=== PATIENT | female | born 1955 | race African-American/Black ===

== ENCOUNTER 2021-04-04 06:34 | Day surgery (SDC) | payer OTHER ==
[2021-03-29 10:56] LABS: Urine Appearance CLEAR (Clear); Urine Bilirubin NEGATIVE (Negative); Urine Blood NEGATIVE (Negative); Urine Color YELLOW (Yellow); Urine Glucose NEGATIVE (Negative); Urine Protein NEGATIVE (Negative); Urine Specific Gravity <=1.005 (1.005-1.030)
[2021-03-29 10:57] LABS: Urine Microscopic Reflex NO UMIC
[2021-03-29 11:06] LABS: Potassium 3.7 mmol/L (3.5-5.1)
[2021-03-29 12:06] LABS: Absolute Lymphocytes (CBC) 1.4 K/uL (0.7-4.9); Basophils % 0.4 % (0-1.3); Lymphocytes % 24.3 % (15.3-44.8); MPV 9.5 fL (7.6-11.3); RBC Red Blood Cell Count 4.35 M/uL (3.86-4.86)
[2021-03-29 12:18] LABS: Protime INR 0.99
[2021-04-04] MEDS ORDERED: KETAMINE HCL 500 MG/5 ML VIAL ONE (07:20)
[2021-04-04] MEDS ORDERED: MIDAZOLAM HCL 2 MG/2 ML INJ ONE (07:20)
[2021-04-04] MEDS ORDERED: propofoL 200 MG/20 ML VIAL IV ONE (07:20)
[2021-04-04] MEDS ORDERED: dexAMETHasone 10 MG/ML VIAL ONE (07:20)
[2021-04-04] MEDS ORDERED: SCOPOLAMINE HYDROBROMIDE PATCH TD ONE (07:21)
[2021-04-04] MEDS ORDERED: NS 0.9% VIAL 10 ML ONE (07:21)
[2021-04-04] MEDS ORDERED: ONDANSETRON 4 MG/2 ML VIAL ONE (07:21)
[2021-04-04] MEDS ORDERED: LIDOCAINE 1% MPF 5 ML VIAL ONE (07:21)
[2021-04-04] MEDS ORDERED: CEFAZOLIN/SWI 2gm 2 GM/20 ML SYR ONE (07:21)
[2021-04-04] MEDS ORDERED: FENTANYL CITR 250 MCG/5 ML ONE (07:21)
[2021-04-04] MEDS ORDERED: ROCURONIUM 50 MG/5 ML VIAL IV ONE (07:21)
[2021-04-04] MEDS ORDERED: LIDOCAINE 1% W/EPI 1:100,000 MDV 20 ML VIAL ONE (07:29)
[2021-04-04] MEDS ORDERED: NA CHLORIDE 0.9% 100 ML IV ONE (07:29)
[2021-04-04] MEDS ORDERED: NA CHLORIDE 0.9% 1,000 ML ONE ×2 (07:30→11:11)
[2021-04-04] MEDS ORDERED: VASOPRESSIN 20 UNIT/ML VIAL ONE (07:30)
[2021-04-04] MEDS ORDERED: CEFAZOLIN/SWI 1gm 0 GM/0 ML SYR ONE (07:30)
[2021-04-04] MEDS ORDERED: FENTANYL CITR 100 MCG/2 ML ONE (11:20)
[2021-04-04] MEDS ORDERED: BUPIVACAINE 0.5% PF 10 ML VIAL ONE (12:26)
[2021-04-04] MEDS ORDERED: KETOROLAC 30 MG/ML INJ ONE (12:27)
[2021-04-04] MEDS ORDERED: hydrOXYzine HCL 25 MG TAB PO PRN (12:53)
[2021-04-04] MEDS: MORPHINE 4 MG/ML SYR ONE ×2 (12:53→13:07)
[2021-04-04] MEDS ORDERED: MEPERIDINE HCL 25 MG/ML SYR IM PRN (12:56)
[2021-04-04] MEDS ORDERED: PROMETHAZINE INJ 25 MG/ML AMP IV PRN (12:56)
--- NOTE | 2021-04-04 13:02 | P.BOP ---
Preoperative diagnosis: stage 3 anterior wall prolapse, post defect, uterine prolapse, occult BRENNA Postoperative diagnosis: same Primary procedure: Anterior repair with biologic graft and bilat SSLF colpopexy Secondary procedure: post repair and perineorrhaphy, cysto Multiple Sclerosis Nurse: Huber Boland Estimated blood loss: 150 Specimen: none Findings: -2/+5+5/6/mod/8/-2/-2/-3 Anesthesia: General Complications: None Drain(s): Urinary catheter Implants: dermapure Transferred to: Recovery Room Condition: Good
[2021-04-04 13:39] VITALS: TEMP 97.5; O2SAT 99
[2021-04-04] MEDS: HYDROCODONE/APAP 5/325 MG TAB PO PRN ×2 (14:10→14:23)
[2021-04-04] MEDS ORDERED: HYDROCODONE/APAP 5/325 MG TAB ONE ×2 (14:20→14:43)
[2021-04-04 15:33] VITALS: BP 130/70
[2021-04-04] MEDS ORDERED: ATORVASTATIN 40 MG TAB PO SCH (21:00)
[2021-04-04] MEDS ORDERED: BUSPIRONE HCL 15 MG TABLET PO SCH (21:00)
--- NOTE | 2021-04-04 23:30 | OP ---
Date of Procedure: 04/04/2021 Surgeon: Page Torre MD End Finder Twisting Department: Huber Saba, funeral director's assistant. Preoperative Diagnoses: Stage III anterior wall and uterine prolapse, posterior wall prolapse, and p erineal body defect noted as well, possible occult stress urinary incontinence. Postoperative Diagnoses: Stage III anterior wall and uterine prolapse, posterior wall prolapse, and perineal body defect noted as well, possible occult stress urinary incontinence. Procedures Performed: Bilateral sacrospinous ligament fixation colpopexy, anterior repair with biolo gic graft augmentation and the colpopexy and the graft were done also in the anterior compartment, th en distal posterior wall repair, perineal body reconstruction (perineorrhaphy), cystoscopy. Anesthesia: General with LMA. Specimens: No specimens. Complications: No complications. Drains: Elizabeth catheter and vaginal packing. Findings: Pop-Q -2, +5, +5, 6, moderate 8, -2, -2 and -3. The large genital hiatus showed a significant defect on the perineal body as well as on the perineum itself, so all of this was reconstructed for the procedure, and after the procedure was performed, cy stoscopy was done, and there were strong jets of urine from both ureteric orifices. After the repair was done anteriorly, there was still a distal bulge in the anterior wall. However, this was most likely from the dissected vaginal wall that appeared to be lax and away from the graft, which should probably re-attach itself to the underlying tissues and the bulge should get better. R ectal exam was done and was negative. Indication: The patient is a 65-year-old female with symptomatic vaginal prolapse, increasing vagina l pressure. She had history of MMK done by Dr. Villasenor in 2005 and reported that her vaginal prolapse w as better for 3 months before it, started to become bothersome. However, the patient is unclear if t his was done. The indication for procedure itself was incontinence or prolapse. Currently, her prol apse has gotten significantly larger with increasing pressure symptoms that are bothersome on a daily basis. So, we discussed about all the options and alternative. Her ureterovesical junction did not appear to be hypermobile and her maximal urethral closure pressure was 73 cm on urodynamic testing. To veer not too high, so no symptomatic stress incontinence, and therefore the risk of occult incont inence with the maximal urethral closure pressure at 73 is minimal, so I had discussed with the patie nt preoperatively itself that if there is hypermobility noted, then I would perform a sling. If not, then either bulking or nothing would be done to observe. Then, after the prolapse repair was done a nd on visualization of the urethra appeared to be completely unremarkable, not too wide at the UVJ, s o decided not to bulk her at this time. Description Of Procedure: After informed consent was verified, she was brought back to the OR, place d in supine fashion on the operating table. Again, going back to her preoperative counseling, sacral colpopexy with hysterectomy, bilateral salpingo-oophorectomy, perineorrhaphy was discussed as oppose d to uterine preservation with vaginal biologic graft augmented repair and anterior compartment. The patient wanted to proceed with this as she preferred not to have a hysterectomy. Long-term recurren ce rates and risks were all reviewed and compared with similar procedures, and she was consented for the vaginal repair. She was taken back to the OR and placed in the supine fashion on the operating table. General anesth esia was given. She was placed in a dorsal lithotomy position. 2 g of Ancef were given. SCDs were started after she was placed in Ramesh stirrups in dorsal lithotomy then pelvic exam was performed. P op-Q was as above. Vulva, vagina, and perineum were prepped and draped in a sterile fashion. Elizabeth was placed to drain the bladder and retracted superiorly. The anterior compartment was clamped with 2 Allis clamps in midline and right proximal to the UVJ and distal to the cervix. After injecting wi th dilute vasopressin in this area, then an incision was made in the skin and the vaginal epithelium and dissecting away the underlying connective tissue and the bladder. Incision was carried superiorl y and inferiorly to encompass entire length of the anterior wall. Then, the bladder was dissected of f to enter the paravaginal space on both sides, was slightly difficult due to the much larger size of the anterior compartment prolapse to get to the paravaginal space. Once this was entered on the rig ht side without any problems, the ischial spine was palpated, then was dissected and sacrospinous lig ament was fairly well identified. This dissection on the left side was carried without any problems. There was an incision made on the vaginal epithelial wall however, which was closed with the help o f interrupted 3-0 Vicryl sutures x3, and then proceeded to enter the paravaginal space. Ischial spin e was palpated. Pararectal space was entered and the sacrospinous ligament was cleaned up. The Whit e line was cleaned up on both sides as well, slightly more difficult on the right side than the left side. Then, once the bladder was taken down from the cervix and all the way to the UVJ, then sutures were placed from [id number] with 2-0 PDS to plicate the bladder in the midline just to reduce the bulge, not for support and those sutures were actually with 2-0 Vicryl. Then, 0 Prolene was taken on the Capio, the sacrospinous ligament, the mid ligament, one on each side. Then, PDS suture was plac ed on the White line, one on each side and held on clamps. Then, the biologic graft was fashioned to 8 x 6 x 5 cm in dimensions as a trapezoid. Then, this was brought in and the correct side to be opp osed to the bladder was placed and then the sutures with 2-0 Prolene were placed x3 at the cervix shilpa ter and one on each side fixing the graft to the apex. Then, distally fixation was done in the midli ne with 2-0 PDS as well, 3 sutures. Then went on to hook the Prolene sutures of the sacrospinous lig ament to the proximal lateral ends of the graft. Once the proximal and distal midline sutures were p laced, then, the sutures on the sacrospinous were tied down. Then, the paravaginal sutures were plac ed through the graft on each side at appropriate place on the graft and then tied down. The entire a nterior prolapse appeared to have in the proximal half very well reduced; in the distal half, there s eems to be a bulge but just based on the graft itself, there was no apparent problem, but the tissue was still lax that this had to be trimmed slightly for this to contract back and not appear to bulge. Once all the sutures were tied, the vaginal epithelium and sub epithelium were stratified, were layla ed with curved Bocanegra scissors, and then continuous running 2-0 Vicryl suture was placed to close the i ncision. Elizabeth was then removed. Cystoscopy was performed with 30-degree lens with normal saline. Both urete chris orifices had strong jets of urine from them. No evidence of any trauma to the bladder. The scop e was removed and the Elizabeth was replaced. Posteriorly, the posterior wall was injected with dilute vasopressin. A triangular incision was made at the perineum and onto the vestibule, skin excised. Then lateral ends of the perineal body were d issected to expose them and then a triangular incision was made in the distal posterior wall to remov e the vaginal epithelium and sub epithelium exposing the connective tissue. This was dissected away from the epithelial wall. However, on the left side, there appeared to be a significant amount of sc arring and bleeding. 2-0 Vicryl sutures were placed for hemostasis. Rectovaginal exam was performed. No trauma to the rectum. Then once the connective tissue and the perineal body scar was nicely exposed, excised the scar to so me extent so that a strong tissue could be connected together. Did not do a levatorplasty. However, the entire reconstruction was performed with the help of 2-0 Vicryl sutures interrupted x5. A recta l finger was placed to prevent any rectal trauma. Then, once the perineal body was well reconstructe d and the genital hiatus was down to 4.5 cm, then brought together the distal posterior wall connecti ve tissue together with 2-0 Vicryl interrupted sutures x2. So that there was no dip from the newly r econstructed perineal body into the posterior wall. Then, the edges of the posterior wall were raised, from the underlying connective tissue, t rimmed slightly on the right side. Then 2-0 Vicryl was used to do the posterior repair in a continuo us running fashion on the vaginal epithelium, closing that and tieing the knot inside the hymenal rin g. Then 3-0 Vicryl was used to take a dunk in the subcutaneous plane and the connective tissue, superfic ial connective tissue and then the closure was done in a subcuticular fashion to close the entire inc ision and tied the knot inside the hymen. Rectal exam was performed negative. Instrument, needle, a nd sponge counts were correct at the end of the case. The patient was recovered from anesthesia and taken to PACU in stable condition. She will follow up with me in 2 days for a voiding trial. We will jean baptiste discharge her home with a Elizabeth catheter and some pain medication in 1 week. She has all the restrictions information t o remove the Elizabeth and all that. LAURA Voice ID: [id number] Report ID: [id number]
[2021-04-05] MEDS ORDERED: METFORMIN HCL 500 MG TAB PO SCH (08:00)
[2021-04-05] MEDS ORDERED: ASPARTAME PO SCH (09:00)
[2021-04-05] MEDS ORDERED: NIFEDIPINE XL 30 MG TABLET PO SCH (09:00)
[2021-04-05] MEDS ORDERED: PSYLLIUM HUSK PO SCH (09:00)
[2021-04-05] MEDS ORDERED: DOCUSATE NA 100 MG CAP PO SCH (09:00)
[2021-04-05] MEDS ORDERED: HOME MED 1 EA UNK (Estradiol [Estradiol] 42.5 GM Cream.Appl) VG SCH (17:00)
== END 2021-04-04 15:00 | disposition home or self-care (01) ==
LOC: OR 06:34
PROVIDERS: ATTEND Obstetrics & Gynecology
PROC: 0JQC0ZZ Repair Pelvic Region Subcutaneous Tissue and Fascia, Open Approach (ICD-10-PCS; 2021-04-04)
PROC: 0HQ9XZZ Repair Perineum Skin, External Approach (ICD-10-PCS; 2021-04-04)
PROC: 0USG7ZZ Reposition Vagina, Via Natural or Artificial Opening (ICD-10-PCS; principal; 2021-04-04 07:30)
DX: N81.2 Incomplete uterovaginal prolapse (principal); N39.3 Stress incontinence (female) (male); N81.6 Rectocele; K59.00 Constipation, unspecified; N95.2 Postmenopausal atrophic vaginitis; Z20.822 Contact with and (suspected) exposure to COVID-19
CPT/HCPCS: 57282; 57260; 85025; 80048; 36415; 86900; 86850; 85610; 86901; 82947 ×2; 85730; 81003; U0002; J2704; J2250; J3010 ×2; J1100; J0690; J7030 ×2; J2405